=== PATIENT | female | born 1950 | race Caucasian/White ===

== ENCOUNTER 2016-06-20 00:30 | Emergency (ER) | payer OTHER ==
[~2016-06-20] VITALS: Ht 172.7 cm; Wt 81.6 kg
--- NOTE | 2016-06-20 00:46 | NUR ---
Lawson fraire in [facility] - 06/20/16 at 0153 by MED Patient being evaluated by DR. NEGRON at bedside.
[2016-06-20 00:57] VITALS: BP 154/76
--- NOTE | 2016-06-20 01:45 | NUR ---
PT. AMBULATED TO ER BED 2
--- NOTE | 2016-06-20 01:46 | NUR ---
Patient being evaluated by DR. NEGRON at bedside.
--- NOTE | 2016-06-20 01:54 | NUR ---
66Y/F PATIENT PRESENTS TO ER C/O OF PAIN TO LEFT WRIST AFTER SHE FELL WHILE WALKING AT HOME. NO OTHER INJURY NOTED. HX STAGE 2 BREAST CA, HTN. DENIES N/V/D; SKIN IS PINK/WARM/DRY; AAOX4 WITH EVEN AND STEADY GAIT; LUNGS CLEAR BL; HR EVEN AND REGULAR; PT DENIES ANY FEVER, CP, SOB, OR COUGH AT THIS TIME; LT. WRIST NO SWELLING NOR REDNESS. ABLE TO MOVE ALL FINGERS, PATIENT STATES PAIN OF 5/10 AT THIS TIME; VSS; PATIENT POSITIONED FOR COMFORT; HOB ELEVATED; BEDRAILS UP X2; BED DOWN. ER MD MADE AWARE OF PT STATUS.
[2016-06-20 02:33] VITALS: BP 154/76
--- NOTE | 2016-06-20 02:35 | NUR ---
Patient discharged with v/s stable. Written and verbal after care instructions given and explained. Patient alert, oriented and verbalized understanding of instructions. Ambulatory with steady gait. All questions addressed prior to discharge. ID band removed. Patient advised to follow up with PMD. Rx of NORCO 5MG/325MG given. Patient educated on indication of medication including possible reaction and side effects. Opportunity to ask questions provided and answered.
== END 2016-06-20 02:35 | disposition home or self-care (01) ==
LOC: MED 00:30
DX: S63.502A Unspecified sprain of left wrist, initial encounter (principal); I10 Essential (primary) hypertension; F17.210 Nicotine dependence, cigarettes, uncomplicated; Z88.0 Allergy status to penicillin; Z88.8 Allergy status to other drugs, medicaments and biological substances; W01.0XXA Fall on same level from slipping, tripping and stumbling without subsequent striking against object, initial encounter; Y93.89 Activity, other specified; Y92.89 Other specified places as the place of occurrence of the external cause; Y99.8 Other external cause status
CPT/HCPCS: 73090; 99284; Q0092

== ENCOUNTER 2020-12-28 20:34 | Inpatient (IN) | payer OTHER, SELFPAY ==
[~2020-12-28] VITALS: Ht 177.8 cm; Wt 90.7 kg
[2020-12-28 20:50] VITALS: BP 127/73
--- NOTE | 2020-12-29 | NUR ---
PT W/C ASSISTED TO BED #2
--- NOTE | 2020-12-29 00:10 | NUR ---
70 YO F BIB SELF WITH C/C OF SOB X2 DAYS. 88% ON RA, PLACED ON 2L VIA NC AT 95%.PT STATED SHE IS ALWAYS SOB BUT GOT WORSE YESTERDAY; HAS A HX OF COPD. SOB INCREASES WITH ACTIVITY AND DECREASES AT REST. WHEEZES AUSCULATED THROUGHOUT LUNG FIELD. PT STATED SHE STOPPED TAKING ALL HER MEDICATION WHEN HER SON . DENIES FVER, CHILLS, N/V/D. +COUGH. PT PLACED IN GOWN AND MONITOR. BED LOCKED IN LOWEST POSITION, SIDE RAILS X2. HX: COPD, HTN, AND HAD BREAST CANCER RX: NONCOMPLAINT ALLERG: PCN AND IODINE
--- NOTE | 2020-12-29 00:15 | NUR ---
DO NOT USE ARM BAND PLACED ON L ARM. PT HAD BREAST CANCER, LYMPH REMOVED.
--- NOTE | 2020-12-29 00:35 | NUR ---
LAB AT BEDSIDE.
--- NOTE | 2020-12-29 00:40 | NUR ---
Dr. Calderón examining patient.
[2020-12-29 00:50] LABS: BASOPHILS % (AUTO) 0.2 % (0.0-2.0); EOSINOPHILS # (AUTO) 0.4 K/uL (0-0.4); EOSINOPHILS % (AUTO) 4.2 % (0.0-4.0); HEMATOCRIT 38.5 % (36-48); HEMOGLOBIN 12.9 g/dL (12.0-16.0); LYMPHOCYTES # (AUTO) 1.7 K/uL (2.5-16.5); LYMPHOCYTES % (AUTO) 18.8 % (20.5-51.1); MEAN CORPUSCULAR HEMOGLOBIN 32 pg (27-31); MEAN CORPUSCULAR HGB CONC 33 g/dL (33-37); MEAN CORPUSCULAR VOLUME 95.9 fL (80-94); MONOCYTES # (AUTO) 0.8 K/uL (0.8-1.0); MONOCYTES % (AUTO) 8.7 % (1.7-9.3); NEUTROPHILS # (AUTO) 6.1 K/uL (1.8-7.7); NEUTROPHILS % (AUTO) 68.1 % (42.2-75.2); PLATELET COUNT (AUTO) 228 K/uL (140-450); RED BLOOD CELL COUNT(AUTO) 4.01 MIL/uL (4.20-5.40); RED CELL DISTRIBUTION WIDTH 16.2 % (11.6-13.7); WHITE BLOOD COUNT (AUTO) 8.9 K/uL (4.8-10.8)
[2020-12-29] MEDS ORDERED: methylPREDNISolone SS 125 MG/2 ML VIAL IVP ONE (01:00)
[2020-12-29] MEDS ORDERED: ALBUTEROL SULFATE/IPRATROPIU 3 ML SOL IH ONE (01:00)
[2020-12-29 01:07] LABS: CARBON DIOXIDE 24.9 mmol/L (21-32); CHLORIDE 103 mmol/L (98-107); GLUCOSE 114 mg/dL (74-106); POTASSIUM 3.9 mmol/L (3.5-5.1); SODIUM SERUM 140 mmol/L (136-145); UREA NITROGEN, BLOOD 14 mg/dL (7-18)
--- NOTE | 2020-12-29 01:25 | NUR ---
RT AT BEDSIDE FOR BREATHING TX.
--- NOTE | 2020-12-29 02:03 | NUR ---
PT IS SLEEPING. EQUAL RISE AND FALL OF CHEST WALL. OPENS EYES TO SOUND. VSS. BED LOCKED IN LOWEST POSITION, SIDE RAILS X2.
[2020-12-29] MEDS ORDERED: NACL 0.9% 1,000 ML IV SCH (03:00)
--- NOTE | 2020-12-29 03:56 | NUR ---
PT REQUIRES REORIENTATION OF WHERE SHE IS WHEN SHE WAKES UP.
--- NOTE | 2020-12-29 04:24 | NUR ---
PT IS SLEEPING. EQUAL RISE AND FALL OF CHEST WALL. OPENS EYES TO SOUND. VSS. BED LOCKED IN LOWEST POSITION, SIDE RAILS X2.
--- NOTE | 2020-12-29 04:51 | NUR ---
PT PROVIDED WITH PADS TO CHANGE.
--- NOTE | 2020-12-29 05:55 | NUR ---
PT IS SLEEPING. EQUAL RISE AND FALL OF CHEST WALL. OPENS EYES TO SOUND. VSS. BED LOCKED IN LOWEST POSITION, SIDE RAILS X2.
--- NOTE | 2020-12-29 06:51 | NUR ---
PT IS SLEEPING. EQUAL RISE AND FALL OF CHEST WALL. OPENS EYES TO SOUND. VSS. BED LOCKED IN LOWEST POSITION, SIDE RAILS X2.
--- NOTE | 2020-12-29 07:09 | NUR ---
REPORT GIVEN TO ACOSTA CARRERA. TRANSFER OF CARE AT THIS TIME.
--- NOTE | 2020-12-29 07:41 | NUR ---
Patient resting with eyes closed, on bedside cardiac tech, VSS.
[2020-12-29] MEDS ORDERED: ACETAMINOPHEN 325 MG TAB PO PRN (08:10)
[2020-12-29] MEDS ORDERED: POTASSIUM CHLORIDE 10 MEQ TABER PO PRN (08:10)
[2020-12-29] MEDS ORDERED: ZOLPIDEM 5 MG TAB PO PRN (08:10)
[2020-12-29] MEDS ORDERED: DOCUSATE SODIUM 100 MG GELCAP PO PRN (08:10)
[2020-12-29] MEDS ORDERED: guaiFENesin DM 200/20 MG-10 ML 10 ML UDC PO PRN (08:10)
[2020-12-29] MEDS ORDERED: ONDANSETRON 4 MG/2 ML VIAL IM/IVP PRN (08:10)
[2020-12-29 08:38] LABS: CHOL/HDL RATIO 4.6 (1-4.5); FREE T4 (FREE THYROXINE) 0.87 ng/dL (0.76-1.46); PHOSPHORUS 3.7 mg/dL (2.5-4.9); THYROID STIMULATING HORMONE 2.65 uIU/mL (0.34-3.74)
[2020-12-29] MEDS: NACL 0.9% 1,000 ML IV SCH (08:43)
--- NOTE | 2020-12-29 08:57 | NUR ---
Patient provided with breakfast tray, states she is not hungry at this time.
[2020-12-29] MEDS: PANTOPRAZOLE 40 MG TABEC PO SCH (09:48)
[2020-12-29] MEDS: LEVOFLOXACIN 750 MG/D5W PREMIX 150 ML IV SCH (09:55)
--- NOTE | 2020-12-29 09:57 | NUR ---
Patient ambulated to restroom with steady gait. Sheets and blankets replaced, all needs met at this time.
[2020-12-29] MEDS: ALBUTEROL SULFATE/IPRATROPIU 3 ML SOL IH PRN ×2 (10:21→13:39)
[2020-12-29] MEDS ORDERED: ALBUTEROL SULFATE/IPRATROPIU 3 ML SOL IH SCH (13:00)
[2020-12-29] MEDS ORDERED: methylPREDNISolone SS 40 MG/ML VIAL IVP SCH (13:00)
[2020-12-29 13:14] LABS: PROTHROMBIN TIME 10.4 secs (10.8-13.4)
[2020-12-29] MEDS: methylPREDNISolone SS 40 MG/ML VIAL IVP SCH ×2 (14:12→21:04)
--- NOTE | 2020-12-29 14:17 | NUR ---
Patient will be admitted to care of Dr. Diane. Admited to Med/Surg. Will go to room 128B. Belongings list completed. Report to Ayah.
--- NOTE | 2020-12-29 14:35 | NUR ---
Patient admitted into room 128B from ED via gurney. Pt is able to ambulate from gurney to bed with steady gait. Right hand IV 22 G intact with ongoing NS @ 60ml/hr. Patient is aaox4. Pt oriented to room and unit, able to verbalize understanding.
[2020-12-29] MEDS: ALBUTEROL SULFATE/IPRATROPIU 3 ML SOL IH SCH ×3 (15:07→23:08)
[2020-12-29 16:00] VITALS: BP 128/62
[2020-12-29 16:13] VITALS: BP 119/68
--- NOTE | 2020-12-29 16:37 | NUR ---
PATIENT HAS BEEN SCREENED AND CATEGORIZED MODERATE NUTRITION RISK. PATIENT WILL BE SEEN WITHIN 3-5 DAYS OF ADMISSION. 12/31/20 01/02/[address]
--- NOTE | 2020-12-29 19:35 | NUR ---
RECEIVED PT SLEEPING, EASILY AROUSABLE, AAOX4, ABLE TO MAKE NEEDS KNOWN, O2 SAT 94% ON 1L NC O2, IVF INFUSING WELL, MAINTAINED ON DROPLET PRECAUTION FOR R/O COVID, PLAN OF CARE DISCUSSED, CALL LIGHT WITHIN REACH.
[2020-12-29 20:00] VITALS: BP 141/66
[2020-12-29] MEDS: BUDESONIDE 0.5 MG/2 ML NEBU INH SCH (20:10)
--- NOTE | 2020-12-29 21:05 | NUR ---
SEEN PT SLEEPING WITH O2 SAT OF 88% ON ROOM AIR, EASILY AROUSABLE, DENIES SOB, PUT PT BACK ON 1L NC, SAT WENT UP TO 94%, OCCASIONAL DRY COUGH, UNABLE TO COUGH OUT SPUTUM SPECIMEN, DUE MEDS ADMINISTERED WITH EDUCATION PROVIDED, ALL NEEDS ATTENDED.
[2020-12-30] VITALS: BP 116/49
[2020-12-30] MEDS: NACL 0.9% 1,000 ML IV SCH ×2 (00:02→17:17)
[2020-12-30] MEDS: ALBUTEROL SULFATE/IPRATROPIU 3 ML SOL IH SCH ×7 (03:24→23:01)
[2020-12-30] MEDS: HYDROcodone/APAP 7.5/325 MG 1 TAB PO PRN (03:46)
--- NOTE | 2020-12-30 03:50 | NUR ---
PT AWAKE, COMPLAINING OF HEADACHE, VITAL SIGNS STABLE, SAT-92% ON ROOM AIR, DENIES SOB, MEDICATED PRN WITH NORCO, PT ABLE TO EXPECTORATE SPUTUM, WILL SENT SPECIMEN TO LAB, IVF INFUSING WELL, MONITORED CLOSELY.
[2020-12-30 04:00] VITALS: BP 125/67
[2020-12-30] MEDS: methylPREDNISolone SS 40 MG/ML VIAL IVP SCH ×3 (05:14→20:02)
[2020-12-30 06:07] LABS: T4 (THYROXINE) 6.3 ug/dL (4.5-12.0)
[2020-12-30 06:21] LABS: BASOPHILS % (AUTO) 0.1 % (0.0-2.0); HEMATOCRIT 37.5 % (36-48); HEMOGLOBIN 12.7 g/dL (12.0-16.0); LYMPHOCYTES # (AUTO) 0.8 K/uL (2.5-16.5); MEAN CORPUSCULAR HEMOGLOBIN 33 pg (27-31); MEAN CORPUSCULAR HGB CONC 34 g/dL (33-37); MONOCYTES # (AUTO) 0.6 K/uL (0.8-1.0); NEUTROPHILS # (AUTO) 9.8 K/uL (1.8-7.7); NEUTROPHILS % (AUTO) 87.9 % (42.2-75.2); PLATELET COUNT (AUTO) 259 K/uL (140-450); RED CELL DISTRIBUTION WIDTH 15.8 % (11.6-13.7); WHITE BLOOD COUNT (AUTO) 11.2 K/uL (4.8-10.8)
[2020-12-30 06:27] LABS: ANION GAP 13.5 (8-16); CARBON DIOXIDE 23.6 mmol/L (21-32); CHLORIDE 105 mmol/L (98-107); GLUCOSE 191 mg/dL (74-106); POTASSIUM 4.1 mmol/L (3.5-5.1); SODIUM SERUM 138 mmol/L (136-145); UREA NITROGEN, BLOOD 16 mg/dL (7-18)
[2020-12-30] MEDS: BUDESONIDE 0.5 MG/2 ML NEBU INH SCH ×2 (07:17→20:06)
--- NOTE | 2020-12-30 07:20 | NUR ---
PT AWAKE, NO RESP DISTRESS NOTED, REPORT GIVEN TO ACOSTA MASSEY FOR CONTINUITY OF CARE.
--- NOTE | 2020-12-30 07:25 | NUR ---
RECEIVED REPORT FROM NIGHT NURSE PATIENT IS SLEEPING ON ROOM AIR AT 94-95%, DIMINISHED LUNG SOUNDS, AMBULATORY, SKIN INTACT IV INTACT ON RIGHT HAND WITH NS AT 60 MLS/HR. ON BREATHING TREATMENT, SPUTUM SAMPLE SENT TO LAB. SAFETY MEASURES IN PLACE AND CALL LIGHT WITHIN REACH. WILL CONTINUE TO MONITOR.
[2020-12-30 08:00] VITALS: BP 148/71
[2020-12-30] MEDS: LEVOFLOXACIN 750 MG/D5W PREMIX 150 ML IV SCH (08:49)
[2020-12-30] MEDS: PANTOPRAZOLE 40 MG TABEC PO SCH (08:50)
[2020-12-30] MEDS: NICOTINE TRANSD SYS 14 MG/24 HR PATCH TD SCH (08:58)
--- NOTE | 2020-12-30 09:13 | NUR ---
ADMINISTERED SCHEDULED MEDICATIONS. PATIENT VERBALIZED UNDERSTANDING. NO S/S OF DISTRESS. ALL SAFETY PRECAUTIONS IN PLACE. WILL CONTINUE TO MONITOR.
--- NOTE | 2020-12-30 11:00 | NUR ---
MADE ROUNDS AT THIS TIME PATIENT IS RESTING ON ROOM AIR AND NO DISTRESS NOTED. WILL CONTINUE TO MONITOR.
--- NOTE | 2020-12-30 13:29 | NUR ---
ADMINISTERED SCHEDULED MEDICATIONS. PATIENT VERBALIZED UNDERSTANDING. NO S/S OF DISTRESS. RT ALSO AT BEDSIDE ADMINISTERING TREATMENT. ALL SAFETY PRECAUTIONS IN PLACE.
--- NOTE | 2020-12-30 15:20 | NUR ---
CHECKED ON PATIENT. NO S/S OF DISTRESS. CALL LIGHT WITHIN REACH. ALL SAFETY PRECAUTIONS IN PLACE.
[2020-12-30 16:00] VITALS: BP 150/73
[2020-12-30 17:07] LABS: APPEARANCE,URINE CLEAR (CLEAR); BILIRUBIN,URINE NEGATIVE (NEGATIVE); BLOOD, URINE NEGATIVE (NEGATIVE); COLOR,URINE YELLOW (YELLOW); LEUKOCYTE ESTERASE ,URINE NEGATIVE (NEGATIVE); NITRITE, URINE NEGATIVE (NEGATIVE); UGLUCOSE 3+ (NEGATIVE)
--- NOTE | 2020-12-30 17:20 | NUR ---
ADMINISTERED SCHEDULED MEDICATIONS. IV SITE DRY AND INTACT. IVF RUNNING AT 60 ML/HR. NO S/S OF DISTRESS. ALL SAFETY PRECAUTIONS IN PLACE.
[2020-12-30 17:27] LABS: BARBITURATE, URINE NEGATIVE ng/ml (NEG <=200); BENZODIAZEPINE, URINE NEGATIVE ng/mL (NEG <=200); CANNABINOID, URINE NEGATIVE ng/mL (NEG <=50); COCAINE, URINE NEGATIVE ng/mL (NEG <=300); OPIATE, URINE POSITIVE ng/mL (NEG <=2000); PHENCYCLIDINE SCREEN,URINE NEGATIVE ng/mL (NEG <=25)
--- NOTE | 2020-12-30 19:33 | NUR ---
ENDORSED TO NIGHT NURSE FOR CONTINUITY OF CARE. PT IS STABLE
--- NOTE | 2020-12-30 19:35 | NUR ---
RECIEVED BEDSIDE ENDORSEMENT FROM DAY SHIFT RN, PT LYING IN BED RESTING, PUI, IN ISOLATION ROOM, A&OX4, ABLE TO MAKE NEEDS KNOWN AND FOLLOW SIMPLED COMMANDS, SR ON MONITOR, ON ROOM AIR, ABD SOFT AND NON TENDER TO TOUCH, SKIN WARM DRY AND INTACT, RH 22 G PIV INFUSING NS @ 60MLS/HR, PT CONTINENT, ABLE TO USE BEDSIDE URINAL, NO SIGNS OF ACUTE DISTRESS, SAFETY MEASURES IN PLACE, WILL CONTINUE WITH CURRENT POC
--- NOTE | 2020-12-30 20:22 | NUR ---
ADMINISTERED 2100H MEDICATIONS PER MD ORDERS
--- NOTE | 2020-12-31 00:10 | NUR ---
RECEIVED PT SLEEPING ON SEMI-FOWLERS POSITION, EASILY AROUSABLE, AAOX4, ABLE TO MAKE NEEDS KNOWN, O2 SAT-93% ON ROOM AIR, NO SOB NOTED, OCCASIONAL DRY COUGH, DENIES ANY PAIN, CONTINUE ISOLATION TO R/O COVID, IVF INFUSING WELL, MONITORED CLOSELY.
--- NOTE | 2020-12-31 01:30 | NUR ---
PT AWAKE, AMBULATED TO BR WITH STEADY GAIT, VOIDED FREELY, BACK TO BED, NO SOB NOTED, REQUESTED COLD SODA, PROVIDED AND TOLERATED, CONTINUE TO MONITOR CLOSELY.
[2020-12-31] MEDS: ALBUTEROL SULFATE/IPRATROPIU 3 ML SOL IH SCH ×3 (03:00→11:31)
[2020-12-31] MEDS: HYDROcodone/APAP 7.5/325 MG 1 TAB PO PRN ×2 (03:08→09:55)
[2020-12-31 03:15] VITALS: BP 157/74
--- NOTE | 2020-12-31 03:15 | NUR ---
PT COMPLAINING OF HEADACHE, VITAL SIGNS TAKEN, BP SLIGHTLY ELEVATED, DENIES CHEST PAIN, SAT-94% ON ROOM AIR, DENIES SOB, MEDICATED PRN WITH NORCO, MONITORED CLOSELY.
[2020-12-31] MEDS: methylPREDNISolone SS 40 MG/ML VIAL IVP SCH (05:05)
--- NOTE | 2020-12-31 05:10 | NUR ---
PT SLEEPING, EASILY AROUSABLE, NO SOB NOTED, DUE SOLUMEDROL IVP ADMINISTERED, IVF INFUSING WELL, MONITORED CLOSELY.
[2020-12-31 06:07] LABS: ANION GAP 11.2 (8-16); CARBON DIOXIDE 25.1 mmol/L (21-32); CHLORIDE 106 mmol/L (98-107); CREATININE 0.9 mg/dL (0.6-1.3); GLUCOSE 201 mg/dL (74-106); POTASSIUM 4.3 mmol/L (3.5-5.1); SODIUM SERUM 138 mmol/L (136-145); UREA NITROGEN, BLOOD 18 mg/dL (7-18)
[2020-12-31 06:57] LABS: BASOPHILS % (AUTO) 0.1 % (0.0-2.0); HEMATOCRIT 37.5 % (36-48); HEMOGLOBIN 12.5 g/dL (12.0-16.0); LYMPHOCYTES % (AUTO) 7.7 % (20.5-51.1); MEAN CORPUSCULAR HEMOGLOBIN 32 pg (27-31); MEAN CORPUSCULAR HGB CONC 33 g/dL (33-37); MEAN CORPUSCULAR VOLUME 96.1 fL (80-94); MONOCYTES # (AUTO) 0.7 K/uL (0.8-1.0); MONOCYTES % (AUTO) 5.3 % (1.7-9.3); NEUTROPHILS # (AUTO) 10.8 K/uL (1.8-7.7); NEUTROPHILS % (AUTO) 86.9 % (42.2-75.2); PLATELET COUNT (AUTO) 248 K/uL (140-450); RED CELL DISTRIBUTION WIDTH 16.3 % (11.6-13.7); WHITE BLOOD COUNT (AUTO) 12.4 K/uL (4.8-10.8)
--- NOTE | 2020-12-31 07:20 | NUR ---
PT AWAKE, NO SIGNS OF DISTRESS, REPORT GIVEN TO ACOSTA MASSEY FOR CONTINUITY OF CARE.
--- NOTE | 2020-12-31 07:25 | NUR ---
RECEIVED REPORT FROM NIGHT NURSE PATIENT IS AAOX4 ON ROOM AIR, IV INTACT ON RIGHT HAND G22 WITH NS AT 60 MLS/HR SKIN INTACT, AMBULATORY, NO BOWEL MOVEMENT, NORCO WAS GIVEN LAST NIGHT. SAFETY ,MEASURES IN PLACE AND CALL LIGHT WITHIN REACH. WILL CONTINUE TO MONITOR.
[2020-12-31] MEDS: BUDESONIDE 0.5 MG/2 ML NEBU INH SCH (07:29)
[2020-12-31 08:00] VITALS: BP 185/90
[2020-12-31] MEDS: PANTOPRAZOLE 40 MG TABEC PO SCH (09:42)
[2020-12-31] MEDS: NICOTINE TRANSD SYS 14 MG/24 HR PATCH TD SCH (09:43)
[2020-12-31] MEDS: LEVOFLOXACIN 750 MG/D5W PREMIX 150 ML IV SCH (09:43)
--- NOTE | 2020-12-31 09:45 | NUR ---
ADMINISTERED SCHEDULED MEDICATION CHECK VITAL SIGNS BP 185/89 ND 115 AND PT COMPLAIN OF HEADACHE 6/10 PAIN MEDICATION GIVEN AND DR ARIAS AWARE. BP MEDICATIONS ORDERED.
[2020-12-31] MEDS: NACL 0.9% 1,000 ML IV SCH (10:10)
[2020-12-31] MEDS ORDERED: PANT40EC56 PO (10:50)
[2020-12-31] MEDS ORDERED: PUL.5N INH (10:50)
[2020-12-31] MEDS ORDERED: PRED10TA5 PO (10:50)
[2020-12-31] MEDS ORDERED: METO25TA PO (10:50)
[2020-12-31] MEDS ORDERED: METOPROLOL 25 MG TAB PO SCH (11:00)
--- NOTE | 2020-12-31 11:00 | NUR ---
BP MEDICATIONS GIVEN AND PT TOLERATED WELL. DR ARIAS AWARE
--- NOTE | 2020-12-31 14:00 | NUR ---
DISCHARGED INSTRUCTIONS GIVEN TO PATIENT AT THE BEDSIDE AND ENCOURAGED PATIENT TO CONTINUE MEDICATION AND FOLLOW UP WITH PCP AFTER 5 DAYS AND ISOLATE FOR 14 DAYS, REMOVED ID BAND IV INRACT AND COMPLETE NO BLEEDING, CHANGED PT GOWN AND ESCORTED TO FRONT LOBBY VIA WHEELCHAIR ACCOMPANIED BY FAMILY. PT IS DISCHARGE TO HOME. PT IS STABLE.
== END 2020-12-31 19:34 | disposition home or self-care (01) | DRG 871 ==
LOC: MED 20:34 → MMU 12-29 02:46 → MTU 12-29 13:05 → MMU 12-29 14:18
PROVIDERS: ADMIT Family Medicine; ATTEND Family Medicine
DX: A41.9 Sepsis, unspecified organism (principal); J69.0 Pneumonitis due to inhalation of food and vomit; J96.01 Acute respiratory failure with hypoxia; J44.1 Chronic obstructive pulmonary disease with (acute) exacerbation; J98.11 Atelectasis; E78.00 Pure hypercholesterolemia, unspecified; I10 Essential (primary) hypertension; Z20.822 Contact with and (suspected) exposure to COVID-19; R73.9 Hyperglycemia, unspecified; K44.9 Diaphragmatic hernia without obstruction or gangrene; Z85.3 Personal history of malignant neoplasm of breast; Z86.16 Personal history of COVID-19; Z87.891 Personal history of nicotine dependence; Z90.710 Acquired absence of both cervix and uterus; Z88.0 Allergy status to penicillin; Z91.041 Radiographic dye allergy status
CPT/HCPCS: 36415; 71046; 80048; 80305; 81003; 82150; 83036; 83690; 83735; 83880; 84100; 84436; 84439; 84443; 84479; 84484; 85025; 85610; 85730; 87070; 87081; 87205; 87420; 87804; 93005; 94640; 96361; 96365; 96375; 99285; J1644; J1956; J2920; J2930; J7626; U0003